=== PATIENT | male | born 1980 | race Two or more races ===

== ENCOUNTER → 2016-11-09 | Outpatient (CLI) | payer OTHER ==
[~2016-11-09] MED LIST: MEDROL PO; MEDROL4 MG/DOSE- PO; TESSALON200 MG PO; VIBRAMYCIN100 M1 PO; VOLTAREN75 MG PO; ZYRTEC PO
--- NOTE | ~2016-11-09 | CR63 ---
[facility] A Service of [facility] & [facility] RADIOLOGY TEXT RESULTS PATIENT: CRISSY FONSECA LOCATION: [facility] : [birth year] UNIT #: [id number] AGE: [address]: Jessenia Avendaño SEX: M ORDER DR: [id number] [facility] [address] [place], [place] [address] [id number] O MR#: [id number] Acc #: [id number] NAME: CRISSY FONSECA : 1980 SEX: M STUDY DATE/TIME: 11/09/2016 13:10 UNIT: [facility] ROOM: STUDY DESCRIPTION: CR Chest 2 View Attending Physician: Jessenia Avendaño A.P.R.N. Referring Physician: Jessenia Avendaño A.P.R.N. Ordering Physician: Jessenia Avendaño A.P.R.N. Primary Care Physician: Akilah Chowdary M.D. MEDICAL IMAGING REPORT This report is preliminary unless electronic signature is present EXAM PA and lateral chest. INDICATION 36-year-old male with history of cough and congestion and coughing up blood for 3 months. COMPARISON 10/12/2016 FINDINGS The lungs are well expanded and clear. The heart size is normal. The visualized osseous structures are unremarkable. IMPRESSION Negative chest. Dictated by... Santana Gordon M.D. THIS IS AN ELECTRONICALLY VERIFIED REPORT Santana Gordon M.D. at 11/10/2016 4:41 PM ESTELLA/telma TD: 11/09/2016 16:22 JOB #: [id number] MEDICAL IMAGING REPORT COPY
== END | disposition home or self-care (01) ==
LOC: CRAD 12:54
DX: J30.1 Allergic rhinitis due to pollen (principal); J30.89 Other allergic rhinitis; H10.45 Other chronic allergic conjunctivitis; J98.9 Respiratory disorder, unspecified
CPT/HCPCS: 71020